=== PATIENT | female | born 1985 | race Hispanic/Latino ===

== ENCOUNTER 2016-12-15 07:43 | Inpatient (IN) | payer BC, OTHER ==
[2016-12-15 08:14] VITALS: BMI 46.7
[2016-12-15] MEDS ORDERED: Lactated Ringer's 1,000 ML IV SCH (08:15)
[2016-12-15 10:13] LABS: BASO % 0.2 % (0.0-2.0); EOS # 0.1 K/uL (0.0-0.7); EOS % 1.1 % (0.0-4.0); HEMATOCRIT 35.8 % (34.0-47.0); LYMPH # 2.1 K/uL (1.0-4.3); LYMPH % 21.6 % (20.0-40.0); MEAN CELL VOLUME 84.6 fl (81.0-99.0); MEAN CORPUSCULAR HEMOGLOBIN 27.5 pg (27.0-31.0); MEAN CORPUSCULAR HGB CONC 32.5 g/dL (33.0-37.0); MEAN PLATELET VOLUME 8.6 fl (7.2-11.7); MONO # 0.6 K/uL (0.0-0.8); MONO % 6.3 % (0.0-10.0); NEUT # 6.9 K/uL (1.8-7.0); NEUT % 70.8 % (50.0-75.0); RED CELL DISTRIBUTION WIDTH 14.3 % (11.5-14.5); WHITE BLOOD COUNT 9.7 K/uL (4.8-10.8)
[2016-12-15] MEDS ORDERED: Oxytocin 30 units/LR 500ML 30 U/500 ML BAG IV SCH (10:22)
[2016-12-15] MEDS: Lactated Ringer's 1,000 ML IV SCH ×2 (10:30→17:32)
--- NOTE | 2016-12-15 10:53 | OBADHP ---
Datetime: 12/15/2016 10:39 Admit Comment, IP Provider: iup 38+weeks uneventful course however the baby is macrosomic 4 367gms and is admitted for delivery hopefully vaginal and possibly primary section Pelvic Type - PN: Adequate Extremities - PN: Normal Abdomen - PN: Normal Back - PN: Normal Breast - PN: Normal Lungs - PN: Normal Heart - PN: Normal Thyroid - PN: Normal Neurologic - PN: Normal HEENT - PN: Normal General - PN: Normal Weight - Estimated: 4367 gms Presentation-Admit: Vertex FHR - Baseline A Provider: 140 Membranes, Provider: Intact Contraction Comments Provider: irregular Gestation - Est Wks by US: 38+ Vital Signs Provider: Reviewed; Within Normal Limits IP Chief Complaint: Uterine contractions NICHD Variability Prov Fetus A: Moderate 6-25bpm NICHD Accel Fetus A IP Provider: 10X10 NICHD Decel Fetus A IP Provider: None Dilatation, Provider: 3 Effacement, Provider: 75 Station, Provider: -2 Genitourinary Exam: Normal DTRs - PN: Normal EGA AdmitDate IP: 38.2 IP Adm Impression: Term, intrauterine ; No Active Labor; Intact Membranes IP Admit Plan: Admit to unit; Initiate labor induction protocol
[2016-12-15] MEDS ORDERED: Oxytocin 30 units/LR 500ML 30 U/500 ML BAG IV ONE (10:55)
[2016-12-15] MEDS ORDERED: Lactated Ringer's 1,000 ML IV ONE (11:30)
[2016-12-15] MEDS ORDERED: Fentanyl/Bupivacaine HCl 250 ML EPI ONE (12:53)
[2016-12-15] MEDS ORDERED: Oxycodone/Acetaminophen 5/325 mg Tab PO PRN ×2 (20:07)
--- NOTE | 2016-12-15 20:20 | OBDS ---
DELIVERY PERSONNEL Delivery Doctor: [place] Reardon MD MATERNAL INFORMATION Delivery Anesthesia: Epidural Medications in Delivery: Pitocin 30 units in 500 mls Estimated Blood Loss (ml): 300ml Placenta Cultured: No Maternal Complications: None Provider Comments: delivery of live baby girl 8/9 loose nuchal cord small perineal tear and re pair LABOR SUMMARY EDC: 12/27/2016 00:00 No. Babies in Womb: 1 Attempted: No Labor Anesthesia: Epidural LABOR INFORMATION Reason for Induction: Macrosomia Oxytocin: Induction Group B Beta Strep: Negative Antibiotics # of Doses: N/A Antibiotics Time of Last Dose: N/A Steroids Given: None Reason Steroids Not Administered: Not Applicable MEMBRANES Membranes Rupture Method: Artificial Amniotic Fluid Color: Clear Amniotic Fluid Amount: Scant Amniotic Fluid Odor: Normal VAGINAL DELIVERY Episiotomy: None Laceration Extension: N/A Laceration Type: Perineal Laceration Repair Note: repair of first degree laceration with 2-0 chromic Count Comment: correct IDENTIFICATION/MEDS BABY A ID Band Number: [id number]
[2016-12-16] MEDS ORDERED: Oxycodone/Acetaminophen 5/325 mg Tab PO PRN ×2 (00:14)
[2016-12-16 00:39] VITALS: BP 148/65; PULSE 88; RESP 20; TEMP 98.6; O2SAT 96
[2016-12-16 07:53] LABS: BASO % 0.3 % (0.0-2.0); EOS # 0.1 K/uL (0.0-0.7); EOS % 0.9 % (0.0-4.0); LYMPH # 2.3 K/uL (1.0-4.3); LYMPH % 24.1 % (20.0-40.0); MEAN CELL VOLUME 84.5 fl (81.0-99.0); MEAN CORPUSCULAR HGB CONC 33.1 g/dL (33.0-37.0); MEAN PLATELET VOLUME 8.7 fl (7.2-11.7); MONO # 0.6 K/uL (0.0-0.8); MONO % 6.5 % (0.0-10.0); NEUT # 6.4 K/uL (1.8-7.0); NEUT % 68.2 % (50.0-75.0); RED CELL DISTRIBUTION WIDTH 14.1 % (11.5-14.5); WHITE BLOOD COUNT 9.4 K/uL (4.8-10.8)
[2016-12-16] MEDS ORDERED: Benzocaine/Menthol SPRAY TOP PRN (13:31)
--- NOTE | 2016-12-16 14:05 | OBPPN ---
Datetime: 12/16/2016 14:00 PP Pain Prov: Within normal limits PP Nausea Prov: Denies PP Flatus Prov: Yes PP BM Prov: No PP Breasts Prov: Normal PP Heart Prov: Normal PP Lungs Prov: Normal PP Abdomen/Uterus Prov: Normal PP Lochia Prov: Normal PP Vulva/Perineum Prov: Normal PP CVA Tenderness Prov: Normal PP Extremities Prov: Normal PP Progress Prov: Normal PP Impression Prov: Normal progression PP Plan Prov: Continue present management PP Progress Note Prov: stable ppd1 continue present care IP PP Procedures: None Vital Signs Provider PP: Reviewed; Within Normal Limits
--- NOTE | 2016-12-17 12:37 | OBPPN ---
Datetime: 12/17/2016 12:33 PP Pain Prov: Within normal limits PP Pain Prov comment: no SOB chest pains or leg pains PP Nausea Prov: Denies PP Flatus Prov: Yes PP Nausea Prov comment: voiding well PP Breasts Prov: Normal PP Heart Prov: Normal PP Lungs Prov: Normal PP Abdomen/Uterus Prov: Abnormal PP Lochia Prov: Normal PP CVA Tenderness Prov: Normal PP Extremities Prov: Normal PP C/S Incision Prov: Not Applicable PP Progress Prov: Normal PP Comments Phys Exam Prov: fundus firm below the umb. abd soft not distended Ext no calf tendernes s PP Impression Prov: Normal progression PP Plan Prov: Discharge PP Progress Note Prov: d/C home with instructions and follow up with Dr Potter in 4-6 wks IP PP Procedures: None Vital Signs Provider PP: Reviewed
--- NOTE | 2016-12-17 12:39 | OBDCSUM ---
Datetime: 12/17/2016 12:36 Discharged to, Provider: Home Follow up at, Provider: Dr Reardon Disch Instr Activity: Normal activity; Bedrest; May be up to bathroom; May be up for meals; May Show er Disch Instr Diet: Regular Discharge Instructions, Provider: Routine instructions given Discharge Diagnosis, Provider: Term Delivered Discharge Time: 12/17/2016 12:36 Follow up in weeks, Provider: 4-6 wks Disch Referrals: None Contraception discussed, Prov: Yes Disch Activity Restrictions: No exercising; No lifting; No driving; Minimize walking; Minimize stair -climbing; No sexual activity; Nothing in vagina - [place], tampons, douche Discharge Comment, Provider: instructions given Contraception after Delivery: Undecided Datetime: 12/17/2016 09:29 Discharged to, Provider: Home Follow up at, Provider: MD Megan Disch Instr Activity: Normal activity Disch Instr Diet: Regular Follow up in weeks, Provider: 6 weeks.
== END 2016-12-17 20:58 | disposition home or self-care (01) | DRG 775 ==
LOC: H.EROB2 07:43 → H.EROB 07:43 → H.L&D 08:14 → H.EROB2 08:24 → H.OB/GYN 22:45
PROVIDERS: ADMIT Specialist; ATTEND Specialist
PROC: 10E0XZZ Delivery of Products of Conception, External Approach (ICD-10-PCS; principal; 2016-12-15)
PROC: 0HQ9XZZ Repair Perineum Skin, External Approach (ICD-10-PCS; 2016-12-15)
PROC: 10907ZC Drainage of Amniotic Fluid, Therapeutic from Products of Conception, Via Natural or Artificial Opening (ICD-10-PCS; 2016-12-15)
PROC: 4A1HXCZ Monitoring of Products of Conception, Cardiac Rate, External Approach (ICD-10-PCS; 2016-12-15)
DX: O36.63X0 Maternal care for excessive fetal growth, third trimester, not applicable or unspecified (principal); O69.81X0 Labor and delivery complicated by cord around neck, without compression, not applicable or unspecified; O70.0 First degree perineal laceration during delivery; Z3A.38 38 weeks gestation of pregnancy; Z37.0 Single live birth